=== PATIENT | female | born 1970 | race Native Hawaiian/Other Pacific Islander ===

== ENCOUNTER 2017-06-04 12:07 | Emergency (ER) | payer BC ==
[~2017-06-04] VITALS: Ht 152.4 cm; Wt 52.2 kg
[2017-06-04] MEDS ORDERED: methylPREDNISolone ACETATE 40 MG VIAL IM ONE (12:45)
[2017-06-04] MEDS ORDERED: methylPREDNISolone SOD SUCC 125 MG/2 ML VIAL IM ONE (12:45)
--- NOTE | 2017-06-04 12:50 | NUR ---
Patient discharged to home in stable conditon. Written and verbal after care instructions given. Patient verbalizes understanding of instructions.pt walks in steady gait, no sign of distress. deneis any swollen throat or tongue. benton to swallow without difficulty.
[2017-06-04] MEDS ORDERED: methylPREDNISolone SOD SUCC 125 MG/2 ML VIAL ONE (12:55)
== END 2017-06-04 12:52 | disposition home or self-care (01) ==
LOC: ER 12:07
DX: T78.40XA Allergy, unspecified, initial encounter (principal); X58.XXXA Exposure to other specified factors, initial encounter
CPT/HCPCS: 96372; 99283; A4663; J2930